=== PATIENT | female | born 1985 | race Caucasian/White ===

== ENCOUNTER 2019-05-05 02:36 | Emergency (ER) | payer SELFPAY ==
[2019-05-05] MEDS: NORMAL SALINE 1000 ML 1,000 ML IV PRN ×2 (02:45→03:05)
[2019-05-05] MEDS ORDERED: SODIUM BICARBONATE 8.4% INJ 50 MEQ/50 ML DISP.SYRIN IV ONE ×2 (02:54→04:19)
[2019-05-05] MEDS ORDERED: NORMAL SALINE 1000 ML 1,000 ML IV ONE ×3 (02:56→04:18)
[2019-05-05 03:04] LABS: ABSOLUTE EOSINOPHILS # (AUTO) 0.1 10^3/uL (0.0-0.6); ABSOLUTE LYMPHOCYTES (AUTO) 4.9 10^3/uL (0.5-4.7); ABSOLUTE MONOCYTES (AUTO) 0.5 10^3/uL (0.1-1.4); ABSOLUTE NEUT (AUTO) 9.1 10^3/uL (1.7-8.2); BASOPHILS % (AUTO) 0.3 % (0-2); EOSINOPHILS % (AUTO) 0.8 % (0-6); HEMATOCRIT 36.3 % (36.0-47.0); HEMOGLOBIN 11.7 g/dL (12.0-15.5); LYMPHOCYTES % (AUTO) 33.5 % (13-45); MEAN CORPUSCULAR HEMOGLOBIN 31.3 pg (27.0-33.4); MEAN CORPUSCULAR HGB CONC 32.3 g/dL (32.0-36.0); MEAN CORPUSCULAR VOLUME 97 fl (80-97); MONOCYTES % (AUTO) 3.6 % (3-13); PLATELET COUNT 258 10^3/uL (150-450); RED BLOOD COUNT 3.75 10^6/uL (3.72-5.28); SEGMENTED NEUTROPHILS % (AUTO) 61.8 % (42-78); TOTAL CELLS COUNTED % (AUTO) 100 %; WHITE BLOOD COUNT 14.7 10^3/uL (4.0-10.5)
[2019-05-05 03:11] LABS: APPEARANCE,URINE CLOUDY; BILIRUBIN,URINE NEGATIVE (NEGATIVE); COLOR,URINE YELLOW; GLUCOSE, URINE >=500 mg/dL (NEGATIVE); KETONES,URINE NEGATIVE (NEGATIVE); LEUKOCYTE ESTERASE,URINE NEGATIVE (NEGATIVE); NITRITE,URINE NEGATIVE (NEGATIVE); PROTEIN,URINE >=500 mg/dL (NEGATIVE); URINE SPECIFIC GRAVITY 1.009; UROBILINOGEN,URINE NEGATIVE mg/dL (<2.0)
[2019-05-05 03:25] LABS: URINE AMPHETAMINES SCREEN NEGATIVE; URINE BARBITURATES SCREEN NEGATIVE; URINE COCAINE SCREEN NEGATIVE; URINE MARIJUANA (THC) SCREEN NEGATIVE; URINE METHADONE SCREEN NEGATIVE; URINE PHENCYCLIDINE SCREEN NEGATIVE
[2019-05-05 03:35] LABS: URINE BENZODIAZEPINES SCREEN UNCONFIRMED POSITIVE
[2019-05-05 03:37] LABS: ALBUMIN 3.3 g/dL (3.5-5.0); ALKALINE PHOSPHATASE 75 U/L (38-126); ASPARTATE AMINO TRANSFERASE 510 U/L (14-36); BILIRUBIN,TOTAL 0.2 mg/dL (0.2-1.3); BLOOD UREA NITROGEN 21 mg/dL (7-20); CALCIUM 7.5 mg/dL (8.4-10.2); CREATINE KINASE 73 U/L (30-135); GLUCOSE 388 mg/dL (75-110); POTASSIUM 4.2 mmol/L (3.6-5.0); TOTAL PROTEIN 6.2 g/dL (6.3-8.2)
[2019-05-05 03:41] LABS: ANION GAP 19 (5-19); CARBON DIOXIDE 12 mmol/L (22-30); CHLORIDE 107 mmol/L (98-107)
[2019-05-05 03:51] LABS: ACETAMINOPHEN < 10 ug/mL (10-30); SALICYLATE < 1.0 mg/dL (2.0-20.0)
--- NOTE | 2019-05-05 04:06 | RADIOLOGY REPORT (SQ) ---
EXAM DESCRIPTION: XR CHEST 1 VIEW COMPLETED DATE/TME: 05/05/2019 02:53 CLINICAL HISTORY: 33 years, Female, post cpr COMPARISON: None. NUMBER OF VIEWS: Single TECHNIQUE: Portable AP supine LIMITATIONS: None. FINDINGS: Cardiomediastinal silhouette is of normal size. Endotracheal tube tip is lower limits of acceptable approximately 1.4 cm above the xavi. Interstitial alveolar space disease bilaterally. No effusion or pneumothorax. Gaseous distention of the stomach. Hardware overlying the chest IMPRESSION: Endotracheal tube lower limits of acceptable. Interstitial and alveolar space disease bilaterally. No effusion or obvious pneumothorax copyright 2010 [employer]- All Rights Reserved
--- NOTE | 2019-05-05 04:09 | RADIOLOGY REPORT (SQ) ---
INDICATION: aloc, HEROIN OD. Mental status change COMPARISON: None CORRELATION: None TECHNIQUE: Noncontrast spiral axial CT images were obtained from the skull base to vertex. This exam was performed according to our departmental dose-optimization program, which includes automated exposure control, adjustment of the mA and/or kV according to patient size and/or use of iterative reconstruction techniques. FINDINGS: There is no evidence of acute intracranial hemorrhage, midline shift, mass effect or mass lesion. There is loss of normal pena-white differentiation bilaterally.. There is no evidence of acute large territory infarct. Ventricles are of normal size. Extra cerebral spaces are not appreciated. Gyral effacement.. The visualized paranasal sinuses are grossly clear. The orbits and eyeballs are unremarkable. The mastoid air cells are clear. Skull base and calvarium appear intact. IMPRESSION: Loss of pena-white differentiation diffusely bilaterally. This would be consistent with an anoxic event.. No evidence of hemorrhage.
[2019-05-05] MEDS ORDERED: SODIUM BICARBONATE 8.4% INJ 50 MEQ/50 ML DISP.SYRIN ONE ×3 (04:12→08:58)
[2019-05-05] MEDS ORDERED: DEXTROSE 5%-WATER 250 ML with NOREPINEPHRINE BITARTRATE 4 MG IV PRN ×2 (04:14)
[2019-05-05] MEDS ORDERED: EPINEPHRINE INJ 1 MG/10 ML DISP.SYRIN IV STA ×2 (04:19→05:04)
[2019-05-05] MEDS ORDERED: DEXTROSE 5%-WATER 1000 ML 1,000 ML with SODIUM BICARBONATE 100 MEQ IV PRN ×2 (05:00)
--- NOTE | 2019-05-05 05:19 | ER Document Report ---
Entered by CHRISTINE ERAZO SCRIBE 05/05/19 0248 Acting as scribe for:BECKIE GORDON DO ED General - General Chief Complaint: Unresponsive Stated Complaint: UNRESPONSIVE Primary Care Provider: ANANT SMILEY [NO LOCAL MD] - Follow up as needed Mode of Arrival: Medic Information source: Emergency Med Personnel Notes: This 33 year old female patient brought in by EMS presents to the ED today with complaints of a possible opioid overdose and unresponsiveness that occurred prior to arrival. EMS reports that the patient's boyfriend found the patient lying on floor, not breathing. EMS states that the boyfriend stated that the patient recently returned from [place] and that he hadn't seen her in x1.5-2 hours. EMS reports that the patient was warm on arrival and asystole on the monitor. EMS states that they did CPR for approximately x10-12 minutes until ROSC. EMS states that they intubated the patient and placed a NG tube. EMS report that they administered x3 rounds of epi, 2 mg Narcan, 100 mg Fentanyl, and 5 mg Versed post-ROSC. EMS reports a history of heroin use, but states there were no drug paraphernalia around the patient; however, the boyfriend found a syringe in the bathroom. EMS states that the boyfriend denied any history. Past Medical History - General Information source: Emergency Med Personnel Cannot obtain history due to: Intubated, Other - Unresponsive - Social History Smoking Status: Unknown if Ever Smoked Cigarette use (# per day): No Chew tobacco use (# tins/day): No Smoking Education Provided: No Drug Abuse: Heroin Family History: Reviewed & Not Pertinent Review of Systems - Review of Systems -: Yes ROS unobtainable due to patient's medical condition - Intubated; Unresponsive Physical Exam - Vital signs Vitals: Resp 18 05/05/19 02:38 - General General appearance: Unresponsive, Other - Cool. Modeled. GCS 3 with intubation. - HEENT Head: Normocephalic, Atraumatic Eyes: Normal Pupils: Dilated - 8 mm. -: bilateral: Nonreactive Notes: Oropharynx is intubated with ET tube. Trachea is midline. - Respiratory Respiratory status: Respiratory distress - Intubated Chest status: Nontender Breath sounds: Other - Coarse breath sounds in all lung méndez bilaterally. Chest palpation: Normal - Cardiovascular Rhythm: Regular, Tachycardia Heart sounds: Normal auscultation Murmur: No Friction rub: No Gallop: None auscultated - Abdominal Inspection: Obese, Other - NG tube in place Distension: Distended - Moderate Bowel sounds: Normal Tenderness: Nontender - Abdomen soft Organomegaly: No organomegaly - Back Back: Normal, Nontender - Extremities General upper extremity: Other - Cool to the touch; IO line in right shoulder General lower extremity: Other - Cool to the touch; IO line in right leg Notes: Decreased capillary refill - Neurological Neuro grossly intact: Yes - Psychological Associated symptoms: Other - Unresponsive - Skin Skin Temperature: Warm Skin Moisture: Dry Skin Color: Normal Course - Re-evaluation Re-evalutation: 05/05/19 02:58 Patient coded in trauma 2. CPR administered for x3 minutes. ROSC 03:01. 05/05/19 03:[address] 05/05/19 05:06 Unfortunate 33 year old female with heroin use history per boyfriend at scene is here after at least 10 minutes of asystole wihtout CPR in the field. ROSC after 3 doses epi at home and narcan given too. FSBS 300's. She is mottled and cool to touch upon arrival here with pupils 8mm wihtout reaction or reflex and no spontaneous respirations. Code times 2 here back to ROSC with 1 mg epi each time. NaHco3 gtt initiated. Spoke with boyfriend and he knows no history of her. Very acidotic here. Ph 6.5 on gas initially is not able to be released. No way to confirm brain here and I have spoken with Dr. Low at [facility] and she graciously accepted the pt in transfer. 05/05/19 05:17 Pt critical SBP 93. Norepi Gtt infusing. [facility] grounds for transfer. Starting to evaluate pt. - Vital Signs Vital signs: Temp Pulse Resp BP Pulse Ox 90.4 F L 20 106/67 81 L 05/05/19 04:51 05/05/19 04:51 05/05/19 04:51 05/05/19 04:51 - Laboratory Result Diagrams: 05/05/19 02:48 05/05/19 02:48 Laboratory results interpreted by me: 05/05/19 05/05/19 05/05/19 02:43 02:48 02:48 WBC 14.7 H Hgb 11.7 L Absolute Neuts (auto) 9.1 H Absolute Lymphs (auto) 4.9 H Carbon Dioxide 12 L BUN 21 H Est GFR (MDRD) Non-Af 51 L Glucose 388 H POC Glucose 395 H Lactic Acid Calcium 7.5 L Magnesium 2.7 H AST 510 H ALT 345 H Total Protein 6.2 L Albumin 3.3 L Urine Protein Urine Glucose (UA) Urine Blood Salicylates < 1.0 L Acetaminophen < 10 L 05/05/19 05/05/19 02:48 02:48 WBC Hgb Absolute Neuts (auto) Absolute Lymphs (auto) Carbon Dioxide BUN Est GFR (MDRD) Non-Af Glucose POC Glucose Lactic Acid 10.2 H Calcium Magnesium AST ALT Total Protein Albumin Urine Protein >=500 H Urine Glucose (UA) >=500 H Urine Blood SMALL H Salicylates Acetaminophen - Diagnostic Test Radiology reviewed: Image reviewed, Reports reviewed - EKG Interpretation by Me EKG shows normal: Sinus rhythm - Sinus Tachy [address] elevation or depression my interpretation. Critical Care Note - Critical Care Note Total time excluding time spent on procedures (mins): 60 Comments: Bedside care, cpr lead and speaking with boyfriend, consumer banker and attempting to reach family. Boyfriend and then I called father no answer and Sister with the same result. Accepted at [facility] and working on logistics of transfer. Discharge - Discharge Clinical Impression: Respiratory failure Qualifiers: Chronicity: acute Respiratory failure complication: hypoxia Qualified Code(s): J96.01 - Acute respiratory failure with hypoxia Condition: Critical Disposition: [facility] Referrals: LOCALMD,NO [NO LOCAL MD] - Follow up as needed I personally performed the services described in the documentation, reviewed and edited the documentation which was dictated to the scribe in my presence, and it accurately records my words and actions.
[2019-05-05 07:36] VITALS: BP 88/54
[2019-05-05] MEDS ORDERED: NOREPINEPHRINE BITARTRATE INJ/PF 4 MG/4 ML SDV IV ONE (08:58)
[2019-05-05] MEDS ORDERED: NALOXONE HCL INJ/PF 0.4 MG/1 ML SDV ONE (08:58)
[2019-05-05] MEDS ORDERED: EPINEPHRINE INJ 1 MG/10 ML DISP.SYRIN ONE (08:58)
--- NOTE | 2019-05-05 11:40 | EKG REPORT ---
SEVERITY:- ABNORMAL ECG - SINUS TACHYCARDIA PROLONGED QT INTERVAL, CONSIDER HYPOKALEMIA : Confirmed by: Nellie Low 05-May-2019 11:40:24
== END 2019-05-05 05:50 | disposition short-term general hospital (02) ==
LOC: ER 02:36
DX: J96.01 Acute respiratory failure with hypoxia (principal); F11.10 Opioid abuse, uncomplicated; R00.0 Tachycardia, unspecified; R14.0 Abdominal distension (gaseous); H57.04 Mydriasis; E87.2 Acidosis
CPT/HCPCS: 93005; 96376; 99291; 92950; 96361; 51702; 96375; 96365; 96368; 36415; 82962; 82550; 83605; 83735; 80307 ×3; 85025; 81025; 80053; 81001; 84484; 71045; 70450; 94660; 93010; J0171; J2310; J3490 ×2; J7060 ×2; J7030